=== PATIENT | female | born 1990 | race Caucasian/White ===

== ENCOUNTER 2021-02-06 09:53 | Inpatient (IN) | payer MEDICAID ==
[2021-02-06] MEDS ORDERED: Lidocaine 1% 50 ML MDV INJECT ONE (10:46)
[2021-02-06] MEDS ORDERED: Nalbuphine 10 MG/1 ML Vial IVPUSH PRN (10:46)
[2021-02-06] MEDS ORDERED: Sodium Chloride 0.9% 10 ML Syringe FLUSH PRN (10:46)
[2021-02-06] MEDS ORDERED: Ondansetron 4 MG/2 ML SDV IVPUSH PRN (10:46)
[2021-02-06] MEDS ORDERED: Oxytocin/Lactated Ringers 10 UNIT/1,000 ML BAG IV SCH ×2 (11:00→17:49)
[2021-02-06] MEDS ORDERED: Lactated Ringers 1,000 ML IV SCH (11:00)
--- NOTE | 2021-02-06 15:10 | PCM.LDHP ---
L&D History of Present Illness - General Date of Service: 02/06/21 Admit Problem/Dx: Admission Diagnosis/Problem Admission Diagnosis/Problem Source of Information: Patient History Limitations: Reports: No Limitations - History of Present Illness Introduction:: Soco Flannery is a 30-year-old -0-0-2 female at 40 weeks 0 days (ARISTIDES 02/06/2021) by LMP consistent with a 17-week ultrasound who presents for elective induction of labor. She reports that she has been having some intermittent contractions throughout the last week but nothing regular. They have not been overly painful. She denies any leaking of fluid or vaginal bleeding. Reports good movement Quality: Reports: Pressure Severity: Moderate Pain Score: 8 Associated Symptoms: Denies: vaginal bleeding, vaginal discharge, vaginal fluid Present Illness Comments:: Soco Flannery is a 30-year-old -0-0-2 female at 40 weeks 0 days (ARISTIDES 02/06/2021) by LMP consistent with a 17-week ultrasound who presents for elective induction of labor. Her care has been with myself, Dr. Klein, starting at 17 weeks gestational age. The was overall uncomplicated. She received Tdap vaccine on 11/21/2020. She received flu shot on 06/07/2020. Her anatomy ultrasound was normal and did not show any abnormalities. Her care has been with myself, Dr. Klein, and has been complicated by: * History of hemorrhage after her first delivery that was treated with rectal Cytotec. She was treated with prophylactic Cytotec after the second delivery and did not have any hemorrhage. Will consider prophylactic Cytotec with this delivery. 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 G1: 11/27/2012, 39 weeks, , male infant, 7 pounds 12 ounces, epidural for anesthesia, no complications G2: 05/09/2014, 39 weeks, , male , 7 pounds 12 ounces, epidural for anesthesia, no complications G3: Current labs Blood type: O+ Antibody screen: Negative First trimester hematocrit/hemoglobin: 36.7%/12.213 421 Platelets: 232 on 08/30/2019 Urine culture: Mixed shant suggestive of contamination Rubella status: Immune Hepatitis B surface antigen: Negative RPR: Negative HIV: Negative Gonorrhea: Negative Chlamydia: Negative Genetic testing: Normal Prequel genetic testing done on 08/29/2020 Anatomy ultrasound: Normal anatomy, no abnormalities, anterior placenta, no previa, 39th percentile on 09/30/2020 One hour glucose tolerance test: 126 Second trimester hematocrit/hemoglobin: 36.0%/11.8 on 10/24/2020 Platelets: 222 on 10/24/2020 GBS status: Negative - Related Data Allergies/Adverse Reactions: Allergies Allergy/AdvReac Type Severity Reaction Status Date / Time No Known Allergies Allergy Verified 02/06/21 10:44 Home Medications: Home Meds Pnv No.95/Ferrous Fum/Folic AC [ Tablet] 1 each PO DAILY 02/06/21 [History] Past Medical History - Past Health History Medical/Surgical History: Denies Medical/Surgical History 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: : 3 Para: 2 Social & Family History - Tobacco Use Tobacco Use Status *Q: Never Tobacco User Second Hand Smoke Exposure: No - Tobacco Core Measures Tobacco Use/Smoking Within Last 30 Days: No Smokeless Tobacco Use in Last 30 Days: No - Alcohol Use Alcohol Use History: No Alcohol Use in Last Twelve Months: No - Recreational Drug Use Recreational Drug Use: No - Living Situation & Occupation Living situation: Reports: Single, with Significant Other, with Family H&P Review of Systems - Review of Systems: Review Of Systems: See Below General: Denies: Fever, Chills, Malaise, Weakness, Fatigue HEENT: Denies: Headaches, Rhinitis, Post Nasal Drip, Sinus Congestion, Sore Throat, Visual Changes Pulmonary: Denies: Shortness of Breath, Wheezing, Pleuritic Chest Pain, Cough Cardiovascular: Denies: Chest Pain, Palpitations, Dyspnea on Exertion, Orthopnea Gastrointestinal: Denies: Abdominal Pain, Constipation, Diarrhea, Nausea, Vomiting Genitourinary: Denies: Dysuria, Frequency, Burning, Pain, Urgency Musculoskeletal: Reports: Back Pain (And hip pain of ) Skin: Denies: Rash, Lesions Psychiatric: Denies: Depression, Anxiety L&D Exam - Exam Exam: See Below - Vital Signs Vital Signs: Last Vital Signs Temp 37.1 C 02/06/21 10:46 Pulse 71 02/06/21 10:46 Resp 16 02/06/21 10:46 BP 110/56 L 02/06/21 10:46 Pulse Ox Weight: 87.453 kg - OB Specific Contraction Duration (sec): 30-60 Contraction Frequency (min): 15-20 Contraction Intensity: Mild Movement: Active Heart Tones: Present Heart Tones per Min: 140 (+15 x 15 accelerations, no decelerations) Heart Rate (FHR) Variability: Moderate (6-25 bpm) Presentation: Vertex Estimated Weight: 7.5-8 pounds by Yung - Frank Score Frank Score Cervix Position: Anterior Frank Score Consistency: Soft Frank Score Effacement: >80% (90%) Frank Score Dilation: > 5 cm (6 cm) Frank Score 's Station: +1, +2 (+1) Frank Score Total: 13 - Exam General: Alert, Oriented HEENT: Conjunctiva Clear, EOMI Neck: Supple, Trachea Midline Lungs: Clear to Auscultation, Normal Respiratory Effort Cardiovascular: Regular Rate, Regular Rhythm GI/Abdominal Exam: Soft, No Distention, Rebound, Other (Gravid). No: Guarding, Rigid Genitourinary: Normal external exam, Other (Artificial rupture membranes with Amnihook with return of moderate amount of clear fluid. Mother and infant tolerated procedure without difficulty) Skin: Warm, Dry, Intact Psychiatric: Alert, Normal Affect, Normal Mood - Patient Data Lab Results Last 24 hrs: Laboratory Results - last 24 hr 02/06/21 02/06/21 Range/Units 10:37 11:01 WBC 9.25 (3.98-10.04) K/mm3 RBC 3.65 L (3.98-5.22) M/mm3 Hgb 11.3 (11.2-15.7) gm/dl Hct 33.7 L (34.1-44.9) % MCV 92.3 (79.4-94.8) fl MCH 31.0 (25.6-32.2) pg MCHC 33.5 (32.2-35.5) g/dl RDW Std Deviation 45.5 (36.4-46.3) fL Plt Count 156 L (182-369) K/mm3 MPV 10.3 (9.4-12.3) fl Neut % (Auto) 72.2 H (34.0-71.1) % Lymph % (Auto) 22.1 (19.3-51.7) % [place] % (Auto) 4.8 (4.7-12.5) % Eos % (Auto) 0.6 L (0.7-5.8) Baso % (Auto) 0.1 (0.1-1.2) % Neut # (Auto) 6.68 H (1.56-6.13) K/mm3 Lymph # (Auto) 2.04 (1.18-3.74) K/mm3 [place] # (Auto) 0.44 H (0.24-0.36) K/mm3 Eos # (Auto) 0.06 (0.04-0.36) K/mm3 Baso # (Auto) 0.01 (0.01-0.08) K/mm3 SARS-CoV-2 RNA (ROBERT) Negative (NEGATIVE) Result Diagrams: 02/06/21 11:01 - Problem List (1) 40 weeks gestation of SNOMED Code(s): 60179865 ICD Code: Z3A.40 - 40 WEEKS GESTATION OF Status: Acute Current Visit: Yes (2) History of hemorrhage SNOMED Code(s): 694631415 ICD Code: Z87.59 - PERSONAL HISTORY OF COMP OF PREG, CHLDBRTH AND THE PUERP Status: Acute Current Visit: Yes (3) History of hemorrhage, currently SNOMED Code(s): 724100092, 566800723 ICD Code: O09.299 - SUPRVSN OF PREG W POOR REPRODCTV OR OBSTET HISTORY, UNSP TRI Status: Acute Current Visit: Yes Problem List Initiated/Reviewed/Updated: Yes Orders Last 24hrs: Active Orders 24 hr Category Date Time Status Activity as Tolerated [RC] PFP Care 02/06/21 10:46 Active Communication Order [RC] ASDIRECTED Care 02/06/21 10:46 Active Heart Tones [RC] ASDIRECTED Care 02/06/21 10:46 Active Non Stress Test [RC] PER UNIT ROUTINE Care 02/06/21 10:46 Active Notify Provider [RC] PFP Care 02/06/21 10:46 Active Notify Provider [RC] PRN Care 02/06/21 10:46 Active Peripheral IV Care [RC] . DIRECTED Care 02/06/21 10:46 Active Vital Signs [RC] PER UNIT ROUTINE Care 02/06/21 10:46 Active Regular Diet [DIET] Diet 02/06/21 Lunch Active RAPID PLASMA REAGIN,RPR [CHEM] Routine Lab 02/06/21 11:01 Received Lactated Ringers [Ringers, Lactated] 1,000 ml Med 02/06/21 11:00 Active IV ASDIRECTED Nalbuphine [Nubain] Med 02/06/21 10:46 Active 10 mg IVPUSH Q2H PRN Ondansetron [Zofran] Med 02/06/21 10:46 Active 4 mg IVPUSH Q4H PRN Oxytocin/Lactated Ringers [Pitocin in LR 10 Units/1,000 Med 02/06/21 11:00 Active ML] 10 unit in 1,000 ml IV .CONTINUOUS Sodium Chloride 0.9% [Saline Flush] Med 02/06/21 10:46 Active 10 ml FLUSH ASDIRECTED PRN Electronic Heart Tones Ext w TOCO [WOMSER] Oth 02/06/21 10:46 Ordered Routine Electronic Heart Tones Internal [WOMSER] Per Unit Oth 02/06/21 10:46 Ordered Routine Peripheral IV Insertion Adult [OM.PC] Routine Oth 02/06/21 10:46 Ordered Resuscitation Status Routine Resus Stat 02/06/21 10:46 Ordered Medication Orders Oxytocin/Lactated Ringer's (Pitocin In Lr 10 Units/1,000 Ml) 10 unit in 1,000 mls @ 500 mls/hr IV .CONTINUOUS JAVI Lactated Ringer's (Ringers, Lactated) 1,000 mls @ 100 mls/hr IV ASDIRECTED JAVI Nalbuphine HCl (Nalbuphine 10 Mg/1 Ml Vial) 10 mg IVPUSH Q2H PRN PRN Reason: Pain Last Admin: 02/06/21 14:53 Dose: 10 mg Documented by: JORGE Ondansetron HCl (Ondansetron 4 Mg/2 Ml Sdv) 4 mg IVPUSH Q4H PRN PRN Reason: Nausea/Vomiting Sodium Chloride (Sodium Chloride 0.9% 10 Ml Syringe) 10 ml FLUSH ASDIRECTED PRN PRN Reason: Keep Vein Open Assessment/Plan Comment:: Soco Flannery is a 50-year-old -0-0-2 female at 40 weeks 0 days (ARISTIDES 02/06/2021) who presents for elective induction of labor, is complicated by history of hemorrhage in first and received prophylactic Cytotec after delivery of her second infant Refer to observation for elective induction of labor Patient underwent artificial rupture of membranes with return of moderate amount of clear fluid with Amnihook for induction of labor. Mother and tolerated procedure without difficulty Continue monitoring of dilation of cervix to see if this is enough to start labor process without augmentation with other medication Continuous monitoring Place IV and have Lactated Ringer's at 125 ml/hr May have small amounts of regular diet Activity as tolerated May have epidural as desired Plans to breast-feed after delivery Have Cytotec 1000 mcg available for possible treatment for hemorrhage or prophylaxis to prevent hemorrhage Anticipate vaginal delivery unless otherwise indicated Of note to this history and physical was performed at approximately 12:30 PM but note was not completed until 5:50 PM. Ugo Klein MD 5:50 PM 02/06/2021
[2021-02-06] MEDS ORDERED: Misoprostol 200 MCG Tab RECTAL PRN (17:49)
[2021-02-06] MEDS ORDERED: Magnesium Hydroxide 400 MG/5 ML Susp 30 ML Cup PO PRN (17:49)
[2021-02-06] MEDS ORDERED: Benzocaine/Menthol 20%-0.5% Spray 56 GM Canister TOP PRN (17:49)
[2021-02-06] MEDS ORDERED: Acetaminophen 325 MG Tab PO PRN (17:49)
[2021-02-06] MEDS ORDERED: Ibuprofen 600 MG Tab PO PRN (17:49)
[2021-02-06] MEDS ORDERED: Witch Hazel Medicated Pads 40/Jar TOP PRN (17:49)
[2021-02-06] MEDS ORDERED: Hydrocortisone Acetate 25 MG Supp RECTAL PRN (17:49)
[2021-02-06] MEDS ORDERED: Docusate Sodium 100 MG Cap PO PRN (17:49)
--- NOTE | 2021-02-06 17:58 | PCM.DEL ---
L & D Note - General Info Date of Service: 02/06/21 Mother's Due Date: 02/06/21 - Delivery Note Labor: Induced by ARM Delivery Outcome: Livebirth Infant Delivery Method: Spontaneous Vaginal Delivery-Single Presentation: Right Occiput Anterior ([place]) Nuchal Cord: None Anesthesia Type: None Episiotomy Type: None Laceration: Periurethral (bialteral, hemostatic, not repaired) Placenta: Intact, Spontaneous Cord: 3 Vessels Estimated Blood Loss: 150 Resuscitation Needed: No [place]: Bulb Syringe, Stimulated, Warmed, [place] Used Provider: Yoav Weems Score 1 min: 8 Score 5 min: 9 Second Stage Interventions: Reports: Pushing Effectively, Pushing, Pulls Own Legs Back, Pushing, Stirrups/Leg Supports Delivery Comments (Free Text/Narrative):: Stage I: Soco Flannery was admitted for elective induction of labor. On admission her cervix was dilated to 6 cm. She was GBS negative. She had artificial rupture membranes with return of moderate amount of clear fluid. She began to contract spontaneously after rupture of membranes. She progressed to complete and pushing. Stage II: On 02/06/2021 she had a normal vaginal delivery of a live male infant at 16:55. Apgars of 8 & 9. Weight of 3710 g (8 lbs 2.9 oz). Length of 20.5 inches. There was no nuchal cord. Infant was delivered in [place] position. The cord was doubly clamped and cut by father of the at approximately 60 seconds after delivery. was placed on mother's abdomen. Stage III: She had a spontaneous delivery of an intact placenta in Sera presentation. Three vessel cord. She was given pitocin and fundal massage. She had bilateral periurethral lacerations that were hemostatic and not repaired. She began to have some blood clots that collected in the lower uterine segment and bleeding after evaluation of the lacerations and was felt that she should receive the Cytotec that had been discussed prior to delivery. Patient given Cytotec 1000 mcg rectally to reduce bleeding with history of hemorrhage. Mom and baby were stable to recovery. EBL of 150 mL. Ugo Klein MD 5:57 PM 02/07/2020 Induction Criteria - Frank Score Frank Score Dilation: > 5 cm (6 cm) Frank Score Effacement: >80% (90%) Frank Score Infant's Station: +1, +2 (+1) Frank Score Consistency: Soft Frank Score Cervix Position: Anterior Frank Score Total: 13 Frank Score Presenting Part: Reports: Cephalic - Induction Gestational Age >/= 39 wks: Yes Estimated Pelvis: Reports: Adequate Reassuring Monitoring Strip: Yes Absence of Tachy Systole: Yes - General Info Date of Service: 02/06/21 - Patient Data Vitals - Most Recent: Last Vital Signs Temp 37.1 C 02/06/21 10:46 Pulse 71 02/06/21 10:46 Resp 16 02/06/21 10:46 BP 110/56 L 02/06/21 10:46 Pulse Ox Weight - Most Recent: 87.453 kg Lab Results Last 24 Hours: Laboratory Results - last 24 hr 02/06/21 02/06/21 Range/Units 10:37 11:01 WBC 9.25 (3.98-10.04) K/mm3 RBC 3.65 L (3.98-5.22) M/mm3 Hgb 11.3 (11.2-15.7) gm/dl Hct 33.7 L (34.1-44.9) % MCV 92.3 (79.4-94.8) fl MCH 31.0 (25.6-32.2) pg MCHC 33.5 (32.2-35.5) g/dl RDW Std Deviation 45.5 (36.4-46.3) fL Plt Count 156 L (182-369) K/mm3 MPV 10.3 (9.4-12.3) fl Neut % (Auto) 72.2 H (34.0-71.1) % Lymph % (Auto) 22.1 (19.3-51.7) % [place] % (Auto) 4.8 (4.7-12.5) % Eos % (Auto) 0.6 L (0.7-5.8) Baso % (Auto) 0.1 (0.1-1.2) % Neut # (Auto) 6.68 H (1.56-6.13) K/mm3 Lymph # (Auto) 2.04 (1.18-3.74) K/mm3 [place] # (Auto) 0.44 H (0.24-0.36) K/mm3 Eos # (Auto) 0.06 (0.04-0.36) K/mm3 Baso # (Auto) 0.01 (0.01-0.08) K/mm3 SARS-CoV-2 RNA (ROBERT) Negative (NEGATIVE) Med Orders - Current: Current Medications Acetaminophen (Acetaminophen 325 Mg Tab) 650 mg PO Q6H PRN PRN Reason: mild pain or fever Benzocaine/Menthol (Benzocaine/Menthol 20%-0.5% [place] 56 Gm Canister) 0 gm TOP ASDIRECTED PRN PRN Reason: Perineal Comfort Measure Docusate Sodium (Docusate Sodium 100 Mg Cap) 100 mg PO BID PRN PRN Reason: Constipation Hydrocortisone Acetate (Hydrocortisone Acetate 25 Mg Supp) 25 mg RECTAL BID PRN PRN Reason: Hemorrhoid pain Oxytocin/Lactated Ringer's (Pitocin In Lr 10 Units/1,000 Ml) 10 unit in 1,000 mls @ 100 mls/hr IV TITRATE JAVI; Protocol Ibuprofen (Ibuprofen 600 Mg Tab) 600 mg PO Q6H PRN PRN Reason: Mild pain or fever Magnesium Hydroxide (Magnesium Hydroxide 400 Mg/5 Ml Susp 30 Ml Cup) 30 ml PO BEDTIME PRN PRN Reason: Constipation Misoprostol (Misoprostol 200 Mcg Tab) 1,000 mcg RECTAL ONETIME PRN PRN Reason: excessive vaginal bleeding Prenat Multivit/[place]/Iron/Folic Ac ( Multivitamin With Calcium/Folic Acid/Iron Tab) 1 each PO DAILY JAVI Witch Silvia (Witch Silvia Medicated Pads 40/Jar) 1 pad TOP ASDIRECTED PRN PRN Reason: Perineal Comfort Measure Discontinued Medications Oxytocin/Lactated Ringer's (Pitocin In Lr 10 Units/1,000 Ml) 10 unit in 1,000 mls @ 500 mls/hr IV .CONTINUOUS JAVI Last Admin: 02/06/21 16:55 Dose: 999 mls/hr Documented by: Lactated Ringer's (Ringers, Lactated) 1,000 mls @ 100 mls/hr IV ASDIRECTED JAVI Lidocaine HCl (Lidocaine 1% 50 Ml Mdv) 50 ml INJECT ONETIME ONE Stop: 02/06/21 10:47 Nalbuphine HCl (Nalbuphine 10 Mg/1 Ml Vial) 10 mg IVPUSH Q2H PRN PRN Reason: Pain Last Admin: 02/06/21 14:53 Dose: 10 mg Documented by: Ondansetron HCl (Ondansetron 4 Mg/2 Ml Sdv) 4 mg IVPUSH Q4H PRN PRN Reason: Nausea/Vomiting Sodium Chloride (Sodium Chloride 0.9% 10 Ml Syringe) 10 ml FLUSH ASDIRECTED PRN PRN Reason: Keep Vein Open - Problem List & Annotations (1) 40 weeks gestation of SNOMED Code(s): 04352036 Code(s): Z3A.40 - 40 WEEKS GESTATION OF Status: Acute Current Visit: Yes (2) History of hemorrhage SNOMED Code(s): 801296224 Code(s): Z87.59 - PERSONAL HISTORY OF COMP OF PREG, CHLDBRTH AND THE PUERP Status: Acute Current Visit: Yes (3) History of hemorrhage, currently SNOMED Code(s): 077770816, 490072490 Code(s): O09.299 - SUPRVSN OF PREG W POOR REPRODCTV OR OBSTET HISTORY, UNSP TRI Status: Acute Current Visit: Yes (4) Vaginal delivery SNOMED Code(s): 903376011 Code(s): O80 - ENCOUNTER FOR FULL-TERM UNCOMPLICATED DELIVERY Status: Acute Current Visit: Yes - Problem List Review Problem List Initiated/Reviewed/Updated: Yes - My Orders Last 24 Hours: My Active Orders 02/06/21 10:46 Resuscitation Status Routine 02/06/21 11:01 RAPID PLASMA REAGIN,RPR [CHEM] Routine 02/06/21 Dinner Regular Diet [DIET] 02/06/21 17:49 Acetaminophen [TylenoL] 650 mg PO Q6H PRN Benzocaine/Menthol [Dermoplast Pain Relief [place]] See Dose Instructions TOP ASDIRECTED PRN Docusate Sodium [Colace] 100 mg PO BID PRN Hydrocortisone Acetate [Anucort-HC] 25 mg RECTAL BID PRN Ibuprofen [Motrin] 600 mg PO Q6H PRN Magnesium Hydroxide [Milk of Magnesia] 30 ml PO BEDTIME PRN Oxytocin/Lactated Ringers [Pitocin in LR 10 Units/1,000 ML] 10 unit in 1,000 ml IV TITRATE miSOPROStoL [Cytotec] 1,000 mcg RECTAL ONETIME PRN witch Silvia [Tucks] 1 pad TOP ASDIRECTED PRN Heat Therapy [OM.PC] PRN 02/06/21 17:49 Patient Status [ADT] Routine Activity as Tolerated [RC] PER UNIT ROUTINE May Shower [RC] ASDIRECTED Notify Provider Vital Signs [RC] ASDIRECTED Vital Signs [RC] ASDIRECTED Assess Lochia [WOMSER] Per Unit Routine Assess Uterine Involution [WOMSER] Per Unit Routine Breast Pump [WOMSER] Per Unit Routine Ice Therapy [OM.PC] Per Unit Routine Medication Administration Instruction [OM.PC] Routine Perineal Care [OM.PC] Per Unit Routine Peripheral IV Discontinue [OM.PC] Routine Sitz Bath [OM.PC] Per Unit Routine 02/07/21 09:00 Vit with Ca/FA/Iron [ Plus Iron] 1 each PO DAILY 02/07/21 17:49 Heat Therapy [OM.PC] PRN - Plan Plan:: Soco Flannery is a 30-year-old G3 now P3-0-0-3 female status post , PPD #0 complicated by history of hemorrhage in first and received prophylactic Cytotec after delivery of her second Admit to inpatient following normal spontaneous vaginal delivery Continue Pitocin per unit protocol following delivery of placenta and lactated Ringer's until tolerating regular diet Regular diet Vitals per unit routine Ibuprofen and Tylenol for pain control Assist with breast-feeding as needed Continue to monitor lochia Anticipate discharge home on day #1 Ugo Klein MD 6:01 PM 02/06/2021
[2021-02-07] MEDS ORDERED: Prenatal Multivitamin with Calcium/Folic Acid/Iron Tab PO SCH (09:00)
--- NOTE | 2021-02-07 09:38 | PCM.SN.2 ---
- Free Text/Narrative Note: Post Progress Note PPD #1 Subjective: Doing well overall. Ambulating without difficulty. Lochia minimal. Voiding without difficulty. Tolerating regular diet without nausea or vomiting. Pain controlled with oral medications. Breast-feeding with minimal difficulty. Objective: Vitals: Vital Signs - 24 hr 02/06/21 02/06/21 02/07/21 10:46 21:32 05:49 Temperature 36.7 C Temperature [ 37.1 C Temporal] Pulse, 77 72 Peripheral Pulse, 71 Peripheral [ Pulse Oximetry] Respiratory 16 16 14 Rate Blood Pressure 93/49 L 92/55 L Blood Pressure 110/56 L [Right Arm] O2 Sat by Pulse 95 97 Oximetry 02/07/21 08:26 Temperature 37.1 C Temperature [ Temporal] Pulse, 77 Peripheral Pulse, Peripheral [ Pulse Oximetry] Respiratory 14 Rate Blood Pressure 107/61 Blood Pressure [Right Arm] O2 Sat by Pulse 99 Oximetry Physical Exam General: Alert and oriented, no acute distress Lungs: Clear to auscultation bilaterally Heart: Regular rate and rhythm Abdomen: Soft, minimal appropriate tenderness, non-distended, fundus midline, nontender, and at the umbilicus Extremities: No edema in bilateral lower extremities, no calf tenderness bilaterally Laboratory Results - last 24 hr 02/06/21 02/06/21 02/06/21 Range/Units 10:37 11:01 11:01 WBC 9.25 (3.98-10.04) K/mm3 RBC 3.65 L (3.98-5.22) M/mm3 Hgb 11.3 (11.2-15.7) gm/dl Hct 33.7 L (34.1-44.9) % MCV 92.3 (79.4-94.8) fl MCH 31.0 (25.6-32.2) pg MCHC 33.5 (32.2-35.5) g/dl RDW Std Deviation 45.5 (36.4-46.3) fL Plt Count 156 L (182-369) K/mm3 MPV 10.3 (9.4-12.3) fl Neut % (Auto) 72.2 H (34.0-71.1) % Lymph % (Auto) 22.1 (19.3-51.7) % [place] % (Auto) 4.8 (4.7-12.5) % Eos % (Auto) 0.6 L (0.7-5.8) Baso % (Auto) 0.1 (0.1-1.2) % Neut # (Auto) 6.68 H (1.56-6.13) K/mm3 Lymph # (Auto) 2.04 (1.18-3.74) K/mm3 [place] # (Auto) 0.44 H (0.24-0.36) K/mm3 Eos # (Auto) 0.06 (0.04-0.36) K/mm3 Baso # (Auto) 0.01 (0.01-0.08) K/mm3 RPR Non-reactive (NONREACTIVE) SARS-CoV-2 RNA (ROBERT) Negative (NEGATIVE) ASSESSMENT: 30-year-old female -0-0-3 s/p normal vaginal delivery PPD #1, complicated by history of hemorrhage PLAN: Doing well Breast-feeding with minimal difficulty. Assist as needed Lochia minimal. Continue to monitor for appropriate lochia. Continue routine care Anticipate discharge home today Ugo Klein MD 9:37 AM 02/07/2021
--- NOTE | 2021-02-07 09:43 | PCM.DCSUM1 ---
Discharge Summary - Hospital Course Free Text/Narrative:: - General Info Date of Service: 02/06/21 Mother's Due Date: 02/06/21 - Delivery Note Labor: Induced by ARM Delivery Outcome: Livebirth Delivery Method: Spontaneous Vaginal Delivery-Single Presentation: Right Occiput Anterior ([place]) Nuchal Cord: None Anesthesia Type: None Episiotomy Type: None Laceration: Periurethral (bialteral, hemostatic, not repaired) Placenta: Intact, Spontaneous Cord: 3 Vessels Estimated Blood Loss: 150 Resuscitation Needed: No : Bulb Syringe, Stimulated, Warmed, Emmett Used Provider: Yoav Weems Score 1 min: 8 Score 5 min: 9 Second Stage Interventions: Reports: Pushing Effectively, Pushing, Pulls Own Legs Back, Pushing, Stirrups/Leg Supports Delivery Comments (Free Text/Narrative):: Stage I: Soco Flannery was admitted for elective induction of labor. On admission her cervix was dilated to 6 cm. She was GBS negative. She had artificial rupture membranes with return of moderate amount of clear fluid. She began to contract spontaneously after rupture of membranes. She progressed to complete and pushing. Stage II: On 02/06/2021 she had a normal vaginal delivery of a live male infant at 16:55. Apgars of 8 & 9. Weight of 3710 g (8 lbs 2.9 oz). Length of 20.5 inches. There was no nuchal cord. Infant was delivered in [place] position. The cord was doubly clamped and cut by father of the at approximately 60 seconds after delivery. Infant was placed on mother's abdomen. Stage III: She had a spontaneous delivery of an intact placenta in Sera presentation. Three vessel cord. She was given pitocin and fundal massage. She had bilateral periurethral lacerations that were hemostatic and not repaired. She began to have some blood clots that collected in the lower uterine segment and bleeding after evaluation of the lacerations and was felt that she should receive the Cytotec that had been discussed prior to delivery. Patient given Cytotec 1000 mcg rectally to reduce bleeding with history of hemorrhage. Mom and baby were stable to recovery. EBL of 150 mL. Diagnosis: Stroke: No - Discharge Data Discharge Date: 02/07/21 Discharge Disposition: Home, Self-Care 01 Condition: Good - Referral to Home Health Primary Care Physician: PCP None - Discharge Diagnosis/Problem(s) (1) 40 weeks gestation of SNOMED Code(s): 15861785 ICD Code: Z3A.40 - 40 WEEKS GESTATION OF Status: Acute Current Visit: Yes (2) History of hemorrhage SNOMED Code(s): 099678353 ICD Code: Z87.59 - PERSONAL HISTORY OF COMP OF PREG, CHLDBRTH AND THE PUERP Status: Acute Current Visit: Yes (3) History of hemorrhage, currently SNOMED Code(s): 123949866, 583005725 ICD Code: O09.299 - SUPRVSN OF PREG W POOR REPRODCTV OR OBSTET HISTORY, UNSP TRI Status: Acute Current Visit: Yes (4) Vaginal delivery SNOMED Code(s): 129425109 ICD Code: O80 - ENCOUNTER FOR FULL-TERM UNCOMPLICATED DELIVERY Status: Acute Current Visit: Yes - Patient Summary/Data Complications: None Consults: None Hospital Course: Soco Flannery was admitted for elective induction of labor. On admission her cervix was dilated to 6 cm. She was GBS negative. She had artificial rupture of membranes with clear fluid. She began annabella spontaneously after rupture of membranes. She progressed to complete and began pushing. On 2021-02-06 she had a normal vaginal delivery of a live male infant at 16:55. Apgars of 8 and 9. Weight of 3710 g (8 pounds 2.9 ounces). She was given Cytotec 1000 mcg rectally after she did have some increased bleeding after de livery the infant for hemorrhage prophylaxis. Her course was uneventful. Her pain was well controlled and she had minimal lochia. She was ambulating, tolerating a regular diet and voiding normally. She was breast- feeding with minimal difficulty. She was afebrile and her hematocrit was 33.7 on admission. She desired to be discharged home in the afternoon of PPD #1. Her blood type is O+. - Patient Instructions Diet: Regular Diet as Tolerated Activity: Apply Ice, As Tolerated Activity, Other: Nothing in the vagina for 6 weeks Driving: May Drive Today Showering/Bathing: May Shower Notify Provider of: Fever, Increased Pain, Swelling and Redness, Drainage, Nausea and/or Vomiting Other/Special Instructions: Please contact your physician's office if you have heavy vaginal bleeding enough to soak a pad in less than an hour for several hours. Monitor for any signs of an infection in the breasts with severe pain or redness of the breast. - Discharge Plan *PRESCRIPTION DRUG MONITORING PROGRAM REVIEWED*: Not Applicable *COPY OF PRESCRIPTION DRUG MONITORING REPORT IN PATIENT VICKY: Not Applicable Home Medications: Home Meds Pnv No.95/Ferrous Fum/Folic AC [ Tablet] 1 each PO DAILY 02/06/21 [History] Acetaminophen [Tylenol] 650 mg PO Q6H PRN tablet 02/07/21 [Rx] Benzocaine/Menthol [Dermoplast Pain Relief [place]] 1 spray TOP ASDIRECTED PRN canister 02/07/21 [Rx] Docusate Sodium [Colace] 100 mg PO BID PRN cap 02/07/21 [Rx] Hydrocortisone Acetate [Anucort-HC] 25 mg RECTAL BID PRN supp 02/07/21 [Rx] Ibuprofen [Motrin] 600 mg PO Q6H PRN tablet 02/07/21 [Rx] witsandra Lucero [Tucks] 1 pad TOP ASDIRECTED PRN pad 02/07/21 [Rx] Patient Handouts: Care of a Perineal Tear, Care After Vaginal Delivery Referrals: Ugo Klein MD [Physician] - (Follow-up in 1 to 2 weeks for routine visit or earlier as needed) - Discharge Summary/Plan Comment DC Time >30 min.: No Total # of Minutes for Discharge Time: 20 minutes - Patient Data Vitals - Most Recent: Last Vital Signs Temp 37.1 C 02/07/21 08:26 Pulse 77 02/07/21 08:26 Resp 14 02/07/21 08:26 BP 107/61 02/07/21 08:26 Pulse Ox 99 02/07/21 08:26 Weight - Most Recent: 87.453 kg I&O - Last 24 hours: Intake & Output 02/06/21 02/07/21 02/07/21 22:59 06:59 14:59 Output Total 151 Balance -151 Lab Results - Last 24 hrs: Laboratory Results - last 24 hr 02/06/21 02/06/21 02/06/21 Range/Units 10:37 11:01 11:01 WBC 9.25 (3.98-10.04) K/mm3 RBC 3.65 L (3.98-5.22) M/mm3 Hgb 11.3 (11.2-15.7) gm/dl Hct 33.7 L (34.1-44.9) % MCV 92.3 (79.4-94.8) fl MCH 31.0 (25.6-32.2) pg MCHC 33.5 (32.2-35.5) g/dl RDW Std Deviation 45.5 (36.4-46.3) fL Plt Count 156 L (182-369) K/mm3 MPV 10.3 (9.4-12.3) fl Neut % (Auto) 72.2 H (34.0-71.1) % Lymph % (Auto) 22.1 (19.3-51.7) % [place] % (Auto) 4.8 (4.7-12.5) % Eos % (Auto) 0.6 L (0.7-5.8) Baso % (Auto) 0.1 (0.1-1.2) % Neut # (Auto) 6.68 H (1.56-6.13) K/mm3 Lymph # (Auto) 2.04 (1.18-3.74) K/mm3 [place] # (Auto) 0.44 H (0.24-0.36) K/mm3 Eos # (Auto) 0.06 (0.04-0.36) K/mm3 Baso # (Auto) 0.01 (0.01-0.08) K/mm3 RPR Non-reactive (NONREACTIVE) SARS-CoV-2 RNA (ROBERT) Negative (NEGATIVE) Med Orders - Current: Current Medications Acetaminophen (Acetaminophen 325 Mg Tab) 650 mg PO Q6H PRN PRN Reason: mild pain or fever Benzocaine/Menthol (Benzocaine/Menthol 20%-0.5% [place] 56 Gm Canister) 0 gm TOP ASDIRECTED PRN PRN Reason: Perineal Comfort Measure Last Admin: 02/06/21 18:47 Dose: 1 spray Documented by: Docusate Sodium (Docusate Sodium 100 Mg Cap) 100 mg PO BID PRN PRN Reason: Constipation Hydrocortisone Acetate (Hydrocortisone Acetate 25 Mg Supp) 25 mg RECTAL BID PRN PRN Reason: Hemorrhoid pain Oxytocin/Lactated Ringer's (Pitocin In Lr 10 Units/1,000 Ml) 10 unit in 1,000 mls @ 100 mls/hr IV TITRATE JAVI; Protocol Ibuprofen (Ibuprofen 600 Mg Tab) 600 mg PO Q6H PRN PRN Reason: Mild pain or fever Last Admin: 02/07/21 02:36 Dose: 600 mg Documented by: Magnesium Hydroxide (Magnesium Hydroxide 400 Mg/5 Ml Susp 30 Ml Cup) 30 ml PO BEDTIME PRN PRN Reason: Constipation Misoprostol (Misoprostol 200 Mcg Tab) 1,000 mcg RECTAL ONETIME PRN PRN Reason: excessive vaginal bleeding Last Admin: 02/06/21 17:05 Dose: 1,000 mcg Documented by: Prenat Multivit/Check Inspector/Iron/Folic Ac ( Multivitamin With Calcium/Folic Acid/Iron Tab) 1 each PO DAILY JAVI Last Admin: 02/07/21 09:11 Dose: 1 each Documented by: Sera Vega (Sera Vega Medicated Pads 40/Jar) 1 pad TOP ASDIRECTED PRN PRN Reason: Perineal Comfort Measure Last Admin: 02/06/21 18:48 Dose: 1 applic Documented by: Discontinued Medications Oxytocin/Lactated Ringer's (Pitocin In Lr 10 Units/1,000 Ml) 10 unit in 1,000 mls @ 500 mls/hr IV .CONTINUOUS JAVI Last Admin: 02/06/21 16:55 Dose: 999 mls/hr Documented by: Lactated Ringer's (Ringers, Lactated) 1,000 mls @ 100 mls/hr IV ASDIRECTED JAVI Lidocaine HCl (Lidocaine 1% 50 Ml Mdv) 50 ml INJECT ONETIME ONE Stop: 02/06/21 10:47 Nalbuphine HCl (Nalbuphine 10 Mg/1 Ml Vial) 10 mg IVPUSH Q2H PRN PRN Reason: Pain Last Admin: 02/06/21 14:53 Dose: 10 mg Documented by: Ondansetron HCl (Ondansetron 4 Mg/2 Ml Sdv) 4 mg IVPUSH Q4H PRN PRN Reason: Nausea/Vomiting Sodium Chloride (Sodium Chloride 0.9% 10 Ml Syringe) 10 ml FLUSH ASDIRECTED PRN PRN Reason: Keep Vein Open
== END 2021-02-07 17:46 | disposition home or self-care (01) | DRG 807 ==
LOC: JD.OB 09:53 → OBSVTOIN 16:55 → JD.OB 16:56
PROVIDERS: ADMIT Obstetrics & Gynecology; ATTEND Obstetrics & Gynecology
PROC: 10E0XZZ Delivery of Products of Conception, External Approach (ICD-10-PCS; principal; 2021-02-06)
PROC: 10907ZC Drainage of Amniotic Fluid, Therapeutic from Products of Conception, Via Natural or Artificial Opening (ICD-10-PCS; 2021-02-06)
DX: O48.0 Post-term pregnancy (principal); Z37.0 Single live birth; O71.82 Other specified trauma to perineum and vulva; Z3A.40 40 weeks gestation of pregnancy; Z87.59 Personal history of other complications of pregnancy, childbirth and the puerperium; Z20.822 Contact with and (suspected) exposure to COVID-19
CPT/HCPCS: 36415; 59025; 59409; 85025; 86592; A9270-GY; J2300; J2590; U0002

== ENCOUNTER 2021-03-14 07:44 | Emergency (ER) | payer MEDICAID ==
[2021-03-14] MEDS ORDERED: Ondansetron 4 MG/2 ML SDV IVPUSH ONE (08:15)
[2021-03-14] MEDS ORDERED: Dextrose 5%-0.9% NaCl 1,000 ML IV SCH (08:15)
--- NOTE | 2021-03-14 08:19 | EDM.PDOC ---
ED HPI GENERAL MEDICAL PROBLEM - General Chief Complaint: General Stated Complaint: POSSIBLE COVID Time Seen by Provider: 03/14/21 08:14 Source of Information: Reports: Patient History Limitations: Reports: No Limitations - History of Present Illness INITIAL COMMENTS - FREE TEXT/NARRATIVE: 30-year-old female presents to the ED for evaluation of possible COVID-19 illness. She states she is not felt well for the last 5 days. Generalized myalgia with headache. Minimal sore throat no nasal congestion. Retention of sense of taste and smell. Loss of appetite . Has not eaten well for 3 days. Loose stools usually once or twice daily. Onset: Gradual Onset Date: 03/09/21 Duration: Day(s):, Constant Location: Reports: Generalized (Generalized myalgia. Diffuse weakness lightheadedness dizziness loss of appetite with mild diarrhea) Quality: Reports: Ache (Generalized myalgia with headache) Severity: Moderate Improves with: Reports: None (Motrin helps the headache somewhat.) Worsens with: Reports: Other (Feels worse with standing and walking.) Context: Denies: Activity, Lifting, Sick Contact, Trauma, Other Associated Symptoms: Reports: Headaches, Loss of Appetite, Malaise, Nausea/Vomiting, Weakness, Other (Mild diarrhea once or twice daily). Denies: No Other Symptoms, Cough, cough w sputum, Diaphoresis, Fever/Chills, Rash, Seizure, Shortness of Breath, Syncope Treatments [employer]: Reports: Acetaminophen, NSAIDS (Motrin.) Headache Pain Score (Numeric/FACES): 9 - Related Data Allergies Allergy/AdvReac Type Severity Reaction Status Date / Time No Known Allergies Allergy Verified 03/14/21 07:58 Home Meds: Home Meds Acetaminophen [Tylenol] 650 mg PO Q6H PRN tablet 02/07/21 [Rx] Ibuprofen [Motrin] 600 mg PO Q6H PRN tablet 02/07/21 [Rx] Ondansetron [Zofran] 4 mg BUCCAL Q6H PRN #10 tab 03/14/21 [Rx] Sertraline [Zoloft] 50 mg PO DAILY 03/14/21 [History] Past Medical History - Past Health History Medical/Surgical History: Denies Medical/Surgical History CT SCAN TECH History: Reports: Neurological History: Reports: Migraines Psychiatric History: Reports: Depression Social & Family History - Tobacco Use Tobacco Use Status *Q: Never Tobacco User Second Hand Smoke Exposure: No - Caffeine Use Caffeine Use: Reports: None - Recreational Drug Use Recreational Drug Use: No - Living Situation & Occupation Living situation: Reports: Single, with Significant Other, with Family ED ROS GENERAL - Review of Systems Review Of Systems: See Below Constitutional: Reports: Malaise, Weakness, Fatigue, Decreased Appetite, Weight Loss. Denies: Fever, Chills HEENT: Reports: No Symptoms Respiratory: Denies: Shortness of Breath, Wheezing, Pleuritic Chest Pain, Cough, Sputum Cardiovascular: Reports: Lightheadedness. Denies: Chest Pain, Blood Pressure Problem, Claudication, Dyspnea on Exertion, Orthopnea, Palpitations Endocrine: Reports: Fatigue GI/Abdominal: Reports: Diarrhea (Diarrhea is slightly loose yellow once or twice daily), Decreased Appetite (Has not had any solid food for 3 days), Nausea, Vomiting : Reports: No Symptoms Musculoskeletal: Reports: Muscle Pain (Generalized myalgia) Skin: Reports: No Symptoms Neurological: Reports: Dizziness, Headache, Difficulty Walking, Weakness. Denies: Confusion, Numbness, Syncope, Tingling, Tremors, Trouble Speaking, Change in Speech, Gait Disturbance (Due to weakness) Psychiatric: Reports: Depression Hematologic/Lymphatic: Reports: No Symptoms Immunologic: Reports: No Symptoms ED EXAM, GENERAL - Physical Exam Exam: See Below Exam Limited By: No Limitations General Appearance: Alert, WD/WN, No Apparent Distress, Other (Temperature is 36.4 with a heart rate of 60 and sinus. Respiratory to 20 with O2 sats of 99% room air BP 07/15/1976) Eye Exam: Bilateral Eye: Normal Inspection, PERRL Ears: Normal TMs Throat/Mouth: Normal Inspection, Normal Lips, Normal Teeth, Normal Oropharynx Head: Atraumatic, Normocephalic Neck: Normal Inspection, Supple, Non-Tender, Full Range of Motion, Thyromegaly (Patient does have a diffuse goiter with the left hemithyroid being slightly larger than the right. No definitive nodule is appreciated in either lobe. It is diffusely enlarged). No: Carotid Bruit, Lymphadenopathy (L), Lymphadenopathy (R) Respiratory/Chest: No Respiratory Distress, Lungs Clear, Normal Breath Sounds, No Accessory Muscle Use Cardiovascular: Normal Peripheral Pulses, Regular Rate, Rhythm, No Edema, No Gallop, No Murmur, No Rub Peripheral Pulses: 3+: Carotid (L), Carotid (R), Posterior Tibial (L), Posterior Tibial (R), Dorsalis Pedis (L), Dorsalis Pedis (R) GI/Abdominal: Normal Bowel Sounds, Soft, Non-Tender, No Organomegaly Back Exam: Normal Inspection, Full Range of Motion. No: CVA Tenderness (L), CVA Tenderness (R) Extremities: Normal Inspection, Normal Range of Motion, Non-Tender, No Pedal Edema Neurological: Alert, Oriented, CN II-XII Intact, Normal Cognition Psychiatric: Normal Affect, Normal Mood Skin Exam: Warm, Dry, Intact, Normal Color, No Rash Course - Vital Signs Last Recorded V/S: Last Vital Signs Temp 36.1 C 03/14/21 11:00 Pulse 56 L 03/14/21 11:00 Resp 12 03/14/21 11:00 BP 115/77 03/14/21 11:00 Pulse Ox 98 03/14/21 11:00 - Orders/Labs/Meds Orders: Active Orders 24 hr Category Date Time Status Vital Signs [RC] Q15M Care 03/14/21 10:08 Active Dextrose 5%-0.9% NaCl [Dextrose 5%-Normal Saline] 1,000 Med 03/14/21 08:15 Active ml IV ASDIRECTED EPINEPHrine [Adrenalin] Med 03/14/21 10:08 Active 0.3 mg IM ONETIME PRN Famotidine [Pepcid] Med 03/14/21 10:08 Active 20 mg IVPUSH ONETIME PRN Sodium Chloride 0.9% [Saline Flush] Med 03/14/21 10:15 Active 30 ml FLUSH ASDIRECTED diphenhydrAMINE [Benadryl] Med 03/14/21 10:08 Active 50 mg IVPUSH ONETIME PRN methylPREDNISolone Sod Succ [Solu-MEDROL] Med 03/14/21 10:08 Active 125 mg IVPUSH ONETIME PRN Medication Orders Diphenhydramine HCl (Diphenhydramine 50 Mg/Ml Sdv) 50 mg IVPUSH ONETIME PRN PRN Reason: hypersensitivity reaction Epinephrine HCl (Epinephrine 1 Mg/Ml Sdv) 0.3 mg IM ONETIME PRN PRN Reason: hypersensitivity reaction Famotidine (Famotidine 20 Mg/2 Ml Sdv) 20 mg IVPUSH ONETIME PRN PRN Reason: hypersensitivity reaction Dextrose/Sodium Chloride (Dextrose 5%-Normal Saline) 1,000 mls @ 999 mls/hr IV ASDIRECTED [facility] Last Admin: 03/14/21 08:34 Dose: 999 mls/hr Documented by: LEANDRO Methylprednisolone Sodium Succinate (Methylprednisolone Sodium Succinate 125 Mg/2 Ml Sdv) 125 mg IVPUSH ONETIME PRN PRN Reason: hypersensitivity reaction Sodium Chloride (Sodium Chloride 0.9% 10 Ml Syringe) 30 [facility]: Laboratory Tests 03/14/21 03/14/21 03/14/21 Range/Units 08:15 08:25 08:30 WBC 6.85 (3.98-10.04) K/mm3 RBC 4.85 (3.98-5.22) M/mm3 Hgb 14.7 D (11.2-15.7) gm/dl Hct 43.3 (34.1-44.9) % MCV 89.3 D (79.4-94.8) fl MCH 30.3 (25.6-32.2) pg MCHC 33.9 (32.2-35.5) g/dl RDW Std Deviation 40.9 (36.4-46.3) fL Plt Count 217 (182-369) K/mm3 MPV 10.4 (9.4-12.3) fl Neut % (Auto) 64.0 (34.0-71.1) % Lymph % (Auto) 30.5 (19.3-51.7) % [place] % (Auto) 5.0 (4.7-12.5) % Eos % (Auto) 0.3 L (0.7-5.8) Baso % (Auto) 0.1 (0.1-1.2) % Neut # (Auto) 4.38 (1.56-6.13) K/mm3 Lymph # (Auto) 2.09 (1.18-3.74) K/mm3 [place] # (Auto) 0.34 (0.24-0.36) K/mm3 Eos # (Auto) 0.02 L (0.04-0.36) K/mm3 Baso # (Auto) 0.01 (0.01-0.08) K/mm3 Sodium (136-145) mEq/L Potassium (3.5-5.1) mEq/L Chloride (98-107) mEq/L Carbon Dioxide (21-32) mEq/L Anion Gap (5-15) BUN (7-18) mg/dL Creatinine (0.55-1.02) mg/dL Est Cr Clr Drug Dosing mL/min Estimated GFR (MDRD) (>60) mL/min BUN/Creatinine Ratio (14-18) Glucose (70-99) mg/dL Calcium (8.5-10.1) mg/dL Magnesium (1.8-2.4) mg/dL Total Bilirubin (0.2-1.0) mg/dL AST (15-37) U/L ALT (14-59) U/L Alkaline Phosphatase (46-116) U/L C-Reactive Protein (<1.0) mg/dL Total Protein (6.4-8.2) g/dl Albumin (3.4-5.0) g/dl Globulin gm/dL Albumin/Globulin Ratio (1-2) TSH 3rd Generation (0.358-3.74) uIU/mL HCG, Qual (NEGATIVE) Urine Color Yellow (Yellow) Urine Appearance Clear (Clear) Urine pH 7.5 (5.0-8.0) Ur Specific [place] 1.015 (1.005-1.030) Urine Protein Negative (Negative) Urine Glucose (UA) Negative (Negative) Urine Ketones 4+ H (Negative) Urine Occult Blood Negative (Negative) Urine Nitrite Negative (Negative) Urine Bilirubin Negative (Negative) Urine Urobilinogen 0.2 (0.2-1.0) Ur Leukocyte Esterase Trace H (Negative) Urine RBC 0-5 (0-5) /hpf Urine WBC 5-10 H (0-5) /hpf Ur Squamous Epith Cells 0-5 (0-5) /hpf Urine Bacteria Few (FEW) /hpf Urine Mucus Few (FEW) /hpf Ketones (0.0-0.3) mM SARS-CoV-2 RNA (ROBERT) Positive H (NEGATIVE) 03/14/21 03/14/21 03/14/21 Range/Units 08:30 08:30 08:30 WBC (3.98-10.04) K/mm3 RBC (3.98-5.22) M/mm3 Hgb (11.2-15.7) gm/dl Hct (34.1-44.9) % MCV (79.4-94.8) fl MCH (25.6-32.2) pg MCHC (32.2-35.5) g/dl RDW Std Deviation (36.4-46.3) fL Plt Count (182-369) K/mm3 MPV (9.4-12.3) fl Neut % (Auto) (34.0-71.1) % Lymph % (Auto) (19.3-51.7) % [place] % (Auto) (4.7-12.5) % Eos % (Auto) (0.7-5.8) Baso % (Auto) (0.1-1.2) % Neut # (Auto) (1.56-6.13) K/mm3 Lymph # (Auto) (1.18-3.74) K/mm3 [place] # (Auto) (0.24-0.36) K/mm3 Eos # (Auto) (0.04-0.36) K/mm3 Baso # (Auto) (0.01-0.08) K/mm3 Sodium 139 (136-145) mEq/L Potassium 4.0 (3.5-5.1) mEq/L Chloride 105 (98-107) mEq/L Carbon Dioxide 21 (21-32) mEq/L Anion Gap 17.0 H (5-15) BUN 8 (7-18) mg/dL Creatinine 0.7 (0.55-1.02) mg/dL Est Cr Clr Drug Dosing 116.35 mL/min Estimated GFR (MDRD) > 60 (>60) mL/min BUN/Creatinine Ratio 11.4 L (14-18) Glucose 86 (70-99) mg/dL Calcium 8.9 (8.5-10.1) mg/dL Magnesium 1.9 (1.8-2.4) mg/dL Total Bilirubin 0.5 (0.2-1.0) mg/dL AST 49 H (15-37) U/L ALT 100 H (14-59) U/L Alkaline Phosphatase 82 (46-116) U/L C-Reactive Protein 0.6 (<1.0) mg/dL Total Protein 8.0 (6.4-8.2) g/dl Albumin 3.9 (3.4-5.0) g/dl Globulin 4.1 gm/dL Albumin/Globulin Ratio 1.0 (1-2) TSH 3rd Generation 0.821 (0.358-3.74) uIU/mL HCG, Qual Negative (NEGATIVE) Urine Color (Yellow) Urine Appearance (Clear) Urine pH (5.0-8.0) Ur Specific [place] (1.005-1.030) Urine Protein (Negative) Urine Glucose (UA) (Negative) Urine Ketones (Negative) Urine Occult Blood (Negative) Urine Nitrite (Negative) Urine Bilirubin (Negative) Urine Urobilinogen (0.2-1.0) Ur Leukocyte Esterase (Negative) Urine RBC (0-5) /hpf Urine WBC (0-5) /hpf Ur Squamous Epith Cells (0-5) /hpf Urine Bacteria (FEW) /hpf Urine Mucus (FEW) /hpf Ketones 2.34 (0.0-0.3) mM SARS-CoV-2 RNA (ROBERT) (NEGATIVE) Meds: Medications Generic Name Dose Route Start Last Admin Trade Name Freq PRN Reason Stop Dose Admin Diphenhydramine HCl 50 mg 03/14/21 10:08 Diphenhydramine 50 Mg/Ml Sdv IVPUSH ONETIME PRN hypersensitivity reaction Epinephrine HCl 0.3 mg 03/14/21 10:08 Epinephrine 1 Mg/Ml Sdv IM ONETIME PRN hypersensitivity reaction Famotidine 20 mg 03/14/21 10:08 Famotidine 20 Mg/2 Ml Sdv IVPUSH ONETIME PRN hypersensitivity reaction Dextrose/Sodium Chloride 1,000 mls @ 999 mls/hr 03/14/21 08:15 03/14/21 08:34 Dextrose 5%-Normal Saline IV 999 mls/hr ASDIRECTED JAVI Administration Methylprednisolone Sodium Succinate 125 mg 03/14/21 10:08 Methylprednisolone Sodium Succinate 125 Mg/2 Ml Sdv IVPUSH ONETIME PRN hypersensitivity reaction Sodium Chloride 30 ml 03/14/21 10:15 Sodium Chloride 0.9% 10 Ml Syringe FLUSH ASDIRECTED JAVI Discontinued Medications Generic Name Dose Route Start Last Admin Trade Name Freq PRN Reason Stop Dose Admin CASIRIVIMAB/IMDEVIMAB 10 ml/ 110 mls @ 220 mls/hr 03/14/21 10:30 03/14/21 1 1:00 Sodium Chloride IV 03/14/21 10:59 220 mls/hr ONETIME ONE Administration Ondansetron HCl 4 mg 03/14/21 08:15 03/14/21 08:31 Ondansetron 4 Mg/2 Ml Sdv IVPUSH 03/14/21 08:16 4 mg ONETIME ONE Administration - Radiology Interpretation Free Text/Narrative:: 30-year-old female presents to the ED with not feeling well for the last 5 days. Development of generalized myalgia fatigue decreased appetite with mild diarrhea and headache for 5 days. Has not eaten anything solid for the last 3 days. Feels diffusely weak lightheaded. Exam reveals no obvious upper respiratory tract infection. Lungs are clear to auscultation percussion she does have a diffuse goiter which will require further evaluation by ultrasound I will order a TSH today. Benign abdominal examination. IV will be D5 normal saline at open. Zofran 4 mg IV for nausea relief routine labs to include a test and a TSH. - Re-Assessments/Exams Free Text/Narrative Re-Assessment/Exam: 03/14/21 09:36 Hematology reveals a normal white count at 6.85. Auto differential shows 64% neutrophils. Hemoglobin is 14.7 with hematocrit of 43.3 platelet count 217,000. Urinalysis dip shows 4+ ketones and trace of leukocyte esterase. 03/14/21 09:49 Chemistry reveals a sodium of 139 and a potassium of 4.0. Chloride 105 with a bicarb of 21. Anion gap is mildly elevated at 17.0 BUN is 8 with a creatinine of 0.7 and a GFR greater than 60. Glucose is 86. Calcium is 8.9 magnesium is 1.9 total bilirubin is 0.5 AST elevated at 49 and ALT of 100. Alkaline phosphatase is 82 C-reactive protein 0.6 total protein 8.0 with an albumin fraction of 3.9 TSH is 0.821 still within normal limits. Serum beta hCG is negative. 03/14/21 10:00 The micro in the urine shows 5-10 WBCs per high-power field and no red cells. Few bacteria identified. 03/14/21 10:09 patient is COVID-19 positive. A chest x-ray will now be ordered. She is a candidate for monoclonal antibody therapy and she wishes to pursue this avenue of treatment. She was well informed that the current monoclonal antibody therapy is considered an emergency use authorization medication and she was given the handout to read in this regard. I stated to her that the therapy has been approved by an emergency use authorization process has not been fully FDA reviewed or approved. I shared potential risks from the therapy including allergic reactions and including anaphylaxis. At this time there are no other potential treatment options for the patient. I offered the opportunity ask questions and questions were answered. She Soco Flannery voiced understanding agreed to proceed with treatment for herself 03/14/21 11:05 portable chest x-ray reveals normal cardiac silhouette and mediastinum. Lung parenchyma are clear with no signs of viral pneumonia.Serum ketones were markedly elevated at 2.34. 03/14/21 12:02 Patient has completed her Regeneron-Cov dual monoclonal antibody therapy without any problems. She will be tentatively discharged to home. Prescription written for Zofran to be used 4 mg sublingual every 4 to 6 hours for nausea relief. We believe symptoms started 5 days ago and she has 3 children at home. She will monitor them for the development of signs and Symptoms of COVID-19 illness. Advised she is contagious to others for at least another week and should be quarantined for a week. Patient advised that she does need an ultrasound done on her thyroid gland in the near future. Departure - Departure Time of Disposition: 12:25 Disposition: Home, Self-Care 01 Clinical Impression: COVID-19, Goiter diffuse, nontoxic - Discharge Information *PRESCRIPTION DRUG MONITORING PROGRAM REVIEWED*: Not Applicable *COPY OF PRESCRIPTION DRUG MONITORING REPORT IN PATIENT VICKY: Not Applicable Prescriptions: Ondansetron [Zofran] 4 mg BUCCAL Q6H PRN #10 tab PRN Reason: nausea or vomiting Instructions: 10 Things You Can Do to Manage Your COVID-19 Symptoms at Home - CDC (12/27/2019), COVID-19: Keep Your Baby Healthy and Safe - CDC (07/22/2020), COVID-19: How to Protect Yourself and Others - CDC, COVID-19: Quarantine vs. Isolation - CDC (06/13/2020) Referrals: PCP,None [Primary Care Provider] - Forms: ED Department Discharge Additional Instructions: Evaluation in the emergency room today in regards to very mild symptoms of COVID-19 illness primarily with fatigue, loss of appetite and mild diarrhea and mild generalized myalgia. No cough which is atypical. COVID-19 screening however proved to be positive. You therefore did receive dual monoclonal antibody therapy infusion Regen-Cov. A prescription has been written for Zofran 4 mg which you may take under your tongue every 4-6 hours as necessary for relief of nausea and/or vomiting so that hopefully you will be able to eat. Diarrhea will also be usually self-limited 3 to 4 days but will become will recall starvation stools after 3 days of not eating which means you will still secrete some yellow mucousy stools daily. As we discussed Covid 19 vaccination should be contemplated at least 12 to 14 weeks from the time you develop symptoms of COVID-19 illness as you have natural immunity that lasts for several months probably 8-9. COVID-19 vaccine is not indicated for a minimum of 12 weeks from the time you developed COVID-19 illness. You should still be in quarantine for another week due to COVID-19 illness symptoms. In regards to your enlarged thyroid gland which we call a goiter it has no nodules within it but is obviously enlarged and you should have an ultrasound booked to study the thyroid gland at some point within the next 3 to 4 weeks. Thyroid function studies done today revealed the thyroid gland to be functioning normally otherwise. Sepsis Event Note (ED) - Evaluation Sepsis Screening Result: No Definite Risk - Focused Exam Vital Signs: Vital Signs Temp Pulse Resp BP Pulse Ox 03/14/21 11:00 36.1 C 56 L 12 115/77 98 03/14/21 07:55 36.4 C 60 20 118/77 99 - My Orders Last 24 Hours: My Active Orders 03/14/21 08:15 Dextrose 5%-0.9% NaCl [Dextrose 5%-Normal Saline] 1,000 ml IV ASDIRECTED 03/14/21 10:08 Vital Signs [RC] Q15M EPINEPHrine [Adrenalin] 0.3 mg IM ONETIME PRN Famotidine [Pepcid] 20 mg IVPUSH ONETIME PRN diphenhydrAMINE [Benadryl] 50 mg IVPUSH ONETIME PRN methylPREDNISolone Sod Succ [Solu-MEDROL] 125 mg IVPUSH ONETIME PRN 03/14/21 10:15 Sodium Chloride 0.9% [Saline Flush] 30 ml FLUSH ASDIRECTED - Assessment/Plan Last 24 Hours: My Active Orders 03/14/21 08:15 Dextrose 5%-0.9% NaCl [Dextrose 5%-Normal Saline] 1,000 ml IV ASDIRECTED 03/14/21 10:08 Vital Signs [RC] Q15M EPINEPHrine [Adrenalin] 0.3 mg IM ONETIME PRN Famotidine [Pepcid] 20 mg IVPUSH ONETIME PRN diphenhydrAMINE [Benadryl] 50 mg IVPUSH ONETIME PRN methylPREDNISolone Sod Succ [Solu-MEDROL] 125 mg IVPUSH ONETIME PRN 03/14/21 10:15 Sodium Chloride 0.9% [Saline Flush] 30 ml FLUSH ASDIRECTED
[2021-03-14] MEDS ORDERED: diphenhydrAMINE 50 MG/ML SDV IVPUSH PRN (10:08)
[2021-03-14] MEDS ORDERED: Famotidine 20 MG/2 ML SDV IVPUSH PRN (10:08)
[2021-03-14] MEDS ORDERED: EPINEPHrine 1 MG/ML SDV IM PRN (10:08)
[2021-03-14] MEDS ORDERED: methylPREDNISolone Sodium Succinate 125 MG/2 ML SDV IVPUSH PRN (10:08)
[2021-03-14] MEDS ORDERED: Sodium Chloride 0.9% 10 ML Syringe FLUSH SCH (10:15)
--- NOTE | 2021-03-14 10:49 | CR ---
Chest: Frontal view of the chest was obtained. Comparison: No prior chest imaging is available. Heart size and mediastinum are within normal limits. Lungs are clear with no acute parenchymal change. No acute osseous abnormality is seen. Impression: 1. Nothing acute is seen on frontal chest x-ray. Diagnostic code #1
== END 2021-03-14 12:30 | disposition home or self-care (01) ==
LOC: JD.ED 07:44
DX: U07.1 COVID-19 (principal); E04.0 Nontoxic diffuse goiter
CPT/HCPCS: 36415; 71045; 80053; 81001; 82009; 83735; 84443; 84703; 85025; 86140; 87635; 96374; 99284; J2405; J7042; M0243; Q0243; U0002

== ENCOUNTER 2021-03-30 10:11 | Emergency (ER) | payer MEDICAID | END 2021-03-30 11:28 | disposition left against medical advice (07) | LOC: JD.ED 10:11 | DX: Z53.21 Procedure and treatment not carried out due to patient leaving prior to being seen by health care provider (principal) ==

== ENCOUNTER 2022-06-26 20:47 | Inpatient (IN) | payer MEDICAID ==
[2022-06-26] MEDS: Lactated Ringers 1,000 ML IV SCH ×2 (21:00→21:41)
[2022-06-26] MEDS ORDERED: Lidocaine 1.5% with EPINEPHrine 1:200,000 5 ML Amp ONE (21:00)
[2022-06-26] MEDS ORDERED: Bupivacaine 0.75%/D5W 2 ML Amp ONE (21:00)
[2022-06-26] MEDS ORDERED: Lidocaine 1% 10 ML MDV ONE (21:00)
[2022-06-26] MEDS ORDERED: Sodium Chloride 0.9% 10 ML Syringe FLUSH PRN (21:06)
[2022-06-26] MEDS ORDERED: Nalbuphine 10 MG/0.5 ML Syringe IVPUSH PRN (21:06)
[2022-06-26] MEDS ORDERED: Bupivacaine/fentaNYL/NS 100 ML Bag EPIDUR PRN (21:08)
[2022-06-26] MEDS ORDERED: diphenhydrAMINE 50 MG/ML SDV IVPUSH PRN (21:08)
[2022-06-26] MEDS ORDERED: ePHEDrine 50 MG/ML SDV IVPUSH PRN (21:08)
[2022-06-26] MEDS ORDERED: fentaNYL 100 MCG/2 ML SDV EPIDUR PRN (21:08)
[2022-06-26] MEDS ORDERED: Oxytocin/Lactated Ringers 10 UNIT/1,000 ML BAG IV SCH (21:15)
[2022-06-27] MEDS ORDERED: Benzocaine/Menthol 20%-0.5% Spray 78 GM Cannister TOP PRN (00:18)
[2022-06-27] MEDS ORDERED: Acetaminophen 325 MG Tab PO PRN (00:18)
[2022-06-27] MEDS ORDERED: Witch Hazel Medicated Pads 40/Jar TOP PRN (00:18)
[2022-06-27] MEDS: Ibuprofen 600 MG Tab PO PRN ×3 (01:44→19:26)
[2022-06-27] MEDS ORDERED: Sodium Chloride 0.9% 10 ML Syringe FLUSH SCH (09:00)
== END 2022-06-28 10:15 | disposition home or self-care (01) | DRG 807 ==
LOC: JD.OBCHECK 20:47 → JD.OB 20:47 → JD.OBCHECK 21:05 → JD.OB 21:06 → OBSVTOIN 23:26 → JD.OB 23:27
PROVIDERS: ADMIT Obstetrics & Gynecology; ATTEND Obstetrics & Gynecology
PROC: 10E0XZZ Delivery of Products of Conception, External Approach (ICD-10-PCS; principal; 2022-06-26)
PROC: 3E0R3BZ Introduction of Anesthetic Agent into Spinal Canal, Percutaneous Approach (ICD-10-PCS; 2022-06-26)
PROC: 00HU33Z Insertion of Infusion Device into Spinal Canal, Percutaneous Approach (ICD-10-PCS; 2022-06-26)
DX: O99.344 Other mental disorders complicating childbirth (principal); Z37.0 Single live birth; Z3A.38 38 weeks gestation of pregnancy; Z86.16 Personal history of COVID-19
CPT/HCPCS: 36415; 51701; 59025; 59409; 85025; 86592; A9270-GY; J2590; J3010; J7120